=== PATIENT | male | born 1980 | race Caucasian/White ===

== ENCOUNTER 2016-06-28 14:24 | Emergency (ER) | payer MEDICAID ==
[~2016-06-28] VITALS: Wt 87.0 kg
[~2016-06-28 14:24] MED LIST: IBUP800T25 PO
[2016-06-28] MEDS ORDERED: ACETAMINOPHEN 500 MG TAB PO STA (17:59)
[2016-06-28] MEDS ORDERED: IBUPROFEN 600 MG TAB PO ONE (18:00)
[2016-06-28] MEDS ORDERED: CEFTRIAXONE 1 GM INJ IM ONE (18:00)
--- NOTE | 2016-06-28 18:10 | ERD ---
ER Documentation Chief Complaint Date/Time DATE: 06/28/16 TIME: 18:02 Chief Complaint LEFT LEG SWELLING AND REDNESS FROM POSSIBLE BITE. 3 DAYS AGO HPI This is a 36-year-old male presents to the ER with left leg redness, swelling, pain that started 3 days ago. Patient believes that he was bitten by an abnormal and that this caused the redness swelling and pain. Patient denies any fevers or chills however he did have a fever in triage. Pain is described as pressure-like and constant it is worse whenever he moves his leg. Patient denies any numbness or tingling of his leg. He tried ibuprofen for the pain however has not worked. ROS 12 point review of systems was done, all negative except per HPI. Medications Home Meds Active Scripts Hydrocodone/Acetaminophen (Tualatin 5-325 Tablet) 1 Each Tablet, 1 TAB PO Q6H Y for PAIN, #10 TAB Prov:GLADIS GARSIA C 06/28/16 Ibuprofen* (Motrin*) 600 Mg Tab, 600 MG PO Q6, #30 TAB Prov:ADYGLADIS C 06/28/16 Cephalexin* (Keflex*) 500 Mg Capsule, 500 MG PO QID for 7 Days, CAP Prov:ADY,GLADIS C 06/28/16 Sulfamethoxazole-Trimethoprim* (Bactrim* DS) 800-160 Mg Tab, 1 TAB PO BID for 7 Days, TAB Prov:ADY,GLADIS C 06/28/16 Ibuprofen* (Motrin*) 800 Mg Tab, 800 MG PO Q8 Y for PAIN AND OR ELEVATED TEMP, # 30 TAB Prov:JERRY MARCIAL NP 12/30/15 PMhx/Soc Medical and Surgical Hx: pt denies Medical Hx, pt denies Surgical Hx Hx Alcohol Use: No Hx Substance Use: No Hx Tobacco Use: No Physical Exam Vitals Vital Signs Date Time Temp Pulse Resp B/P Pulse Ox O2 Delivery O2 Flow Rate FiO2 06/28/16 14:36 100.2 102 21 147/71 98 Physical Exam GENERAL: The patient is well developed and appropriate for usual state of health , in no apparent distress. HEENT: Atraumatic. CHEST: Clear to auscultation bilaterally. There are no rales, wheezes or rhonchi. HEART: Regular rate and rhythm. No murmurs, clicks, rubs or gallops. EXTREMITIES: left leg patient has full ROM of his left leg he is n/v intact NEURO: Alert and oriented. SKIN: there is a 5cm* 6cm area of induration and warmth on the left lower leg. There is a certain point to suggest possible bite. TTP. Results 24 hrs Current Medications Medications (Trade) Dose Ordered Sig/Janik Route PRN Reason Start Time Stop Time Status Last Admin Dose Admin Ceftriaxone Sodium (Rocephin) 1 gm ONCE ONCE IM 06/28/16 18:00 06/28/16 18:01 DC Acetaminophen (Tylenol Tab) 1,000 mg ONCE STAT PO 06/28/16 17:59 06/28/16 18:00 DC Ibuprofen (Motrin) 600 mg ONCE ONCE PO 06/28/16 18:00 06/28/16 18:01 DC Procedures/MDM This is a 36-year-old male that presents to the ER with left leg pain, redness, swelling. Patient does appear to have an abscess. Possibly secondary to an infected bug bite. Patient was given a shot of Rocephin without any complications here in the ER. He will be sent home with Keflex and with Bactrim. Patient was told to return to the ER in 2 days for abscess check. This time area is indurated and it is not fluctuant, I am not able to I&D this abscess. Patient was advised to try warm compresses at home. He was given ibuprofen and Tualatin for his pain. At this time patient is neurovascularly intact and has full range of motion of his leg. I doubt limb compromise, osteomyelitis, acute compartment syndrome, necrotizing fasciitis, myositis, rhabdo. He needs to follow-up with his primary care doctor within 1-2 days or return to ER sooner if symptoms worsen. My medical decision making was shared with the patient he understands and agrees with plan. Departure Diagnosis: Primary Impression: Abscess Condition: Stable GLADIS GARSIA Jun 28, 2016 18:10
[2016-06-28] MEDS ORDERED: CEPH-443 PO (18:21)
[2016-06-28] MEDS ORDERED: BACTDS PO (18:21)
[2016-06-28] MEDS ORDERED: HYDR-906 PO (18:22)
[2016-06-28] MEDS ORDERED: IBUP-1542 PO (18:22)
== END 2016-06-28 19:08 | disposition home or self-care (01) ==
LOC: FTE 14:24
DX: L02.416 Cutaneous abscess of left lower limb (principal)
CPT/HCPCS: 96372; J0696; Z7502; Z7610